=== PATIENT | female | born 1950 | race Caucasian/White ===

== ENCOUNTER 2018-12-22 19:32 | Emergency (ER) | payer OTHER ==
[~2018-12-22] VITALS: Ht 162.6 cm; Wt 74.8 kg
[2018-12-22] MEDS ORDERED: FORTAMET1000 MG (19:56)
[2018-12-22] MEDS ORDERED: PRILOSEC10 MG (19:56)
== END 2018-12-23 10:30 | disposition home or self-care (01) ==
LOC: ER 19:32
DX: E11.65 Type 2 diabetes mellitus with hyperglycemia (principal)

== ENCOUNTER 2021-04-08 12:30 | Inpatient (IN) | payer OTHER ==
[~2021-04-08] VITALS: Ht 162.6 cm; Wt 76.2 kg
[~2021-04-08 12:30] MED LIST: FORTAMET1000 MG; PRILOSEC10 MG
[2021-04-09] MEDS ORDERED: GLIMEPIRIDE4 MG (11:49)
[2021-04-09] MEDS ORDERED: COZAAR50 MG PO (11:49)
[2021-04-09] MEDS ORDERED: CRESTOR40 MG PO (11:49)
[2021-04-09] MEDS ORDERED: INVOKANA100 MG PO (11:49)
[2021-04-09] MEDS ORDERED: CYMBALTA30 MG PO (11:50)
[2021-04-09] MEDS ORDERED: D3 + K2 DOTS 11 EACH PO (11:50)
[2021-04-09] MEDS ORDERED: ADULT LOW DOSE81 M1 PO (11:50)
[2021-04-09] MEDS ORDERED: B12 ACTIVE1000 MCG PO (11:50)
[2021-04-11] MEDS ORDERED: VITAMIN B-12100 MCG (08:48)
[2021-04-11] MEDS ORDERED: VITAMIN D3250 MCG (08:48)
[2021-04-11] MEDS ORDERED: OMEPRAZOLE40 MG (08:48)
[2021-04-11] MEDS ORDERED: MELOXICAM15 MG (08:49)
[2021-04-11] MEDS ORDERED: DICLOFENAC SODI75 MG (08:49)
[2021-04-11] MEDS ORDERED: PROAIR HFA8.5 GM (08:49)
[2021-04-11] MEDS ORDERED: FLONASE16 GM (08:49)
[2021-04-11] MEDS ORDERED: CALCIUM GUMMIE1 EACH (08:50)
[2021-04-11] MEDS ORDERED: ABANEU-SL TABL1 EACH (08:50)
[2021-04-11] MEDS ORDERED: TIZANIDINE HCL4 MG (08:50)
== END 2021-04-11 11:45 | disposition home or self-care (01) | DRG 392 ==
LOC: ADM 12:30 → EDSTATUS 04-09 07:30 → ADM 04-09 09:30 → O/R 04-11 05:56 → OB/GYN 04-11 07:00 → SURH 04-11 07:30 → CIR.AMB 04-11 07:30 → EDSTATUS 04-11 07:30 → O/R 04-11 11:45
PROVIDERS: ADMIT Obstetrics & Gynecology Gynecologic Oncology; ATTEND Obstetrics & Gynecology Gynecologic Oncology
DX: R19.07 Generalized intra-abdominal and pelvic swelling, mass and lump (principal); Z53.09 Procedure and treatment not carried out because of other contraindication; E11.9 Type 2 diabetes mellitus without complications; I10 Essential (primary) hypertension

== ENCOUNTER → 2023-06-01 06:00 | Outpatient (CLI) | payer OTHER ==
[~2023-06-01] VITALS: Ht 162.6 cm; Wt 76.2 kg
[~2023-06-01 06:00] MED LIST changes: +ABANEU-SL TABL1 EACH; +ADULT LOW DOSE81 M1 PO; +B12 ACTIVE1000 MCG PO; +CALCIUM GUMMIE1 EACH; +COZAAR50 MG PO; +CRESTOR40 MG PO; +CYMBALTA30 MG PO; +D3 + K2 DOTS 11 EACH PO; +DICLOFENAC SODI75 MG; +FLONASE16 GM; +GLIMEPIRIDE4 MG; +INVOKANA100 MG PO; +MELOXICAM15 MG; +OMEPRAZOLE40 MG; +PROAIR HFA8.5 GM; +TIZANIDINE HCL4 MG; +VITAMIN B-12100 MCG; +VITAMIN D3250 MCG
== END | disposition home or self-care (01) ==
LOC: LAB 06:00 → ADM 08:15 → CIR.AMB 06-04 07:00 → EDSTATUS 06-04 08:15
PROVIDERS: ATTEND Obstetrics & Gynecology Gynecologic Oncology
DX: Z01.818 Encounter for other preprocedural examination (principal); Z01.812 Encounter for preprocedural laboratory examination; Z01.810 Encounter for preprocedural cardiovascular examination; Z20.822 Contact with and (suspected) exposure to COVID-19; D64.9 Anemia, unspecified; R79.1 Abnormal coagulation profile; R97.8 Other abnormal tumor markers; N39.0 Urinary tract infection, site not specified; N83.292 Other ovarian cyst, left side

== ENCOUNTER 2024-12-01 09:07 | Day surgery (SDC) | payer OTHER ==
[2024-11-21 10:22] VITALS: BP 122/72
[2024-11-21 10:58] LABS: COVID-19 AG NEGATIVE (NEGATIVE)
[2024-11-21 11:08] LABS: URINE APPEARANCE Clear; URINE BILIRRUBIN Negative (NEGATIVE); URINE BLOOD Negative; URINE COLOR Yellow; URINE KETONE Trace (NEGATIVE); URINE LEUKOCYTE Negative; URINE NITRATE Negative; URINE PROTEIN Negative (NEGATIVE); URINE UROBILINOGEN 0.2 E.U./dl
[2024-11-21 11:09] LABS: HEMATOCRIT 40.7 % (36.0-45.00); HEMOGLOBIN 13.7 g/dL (12.0-15.00); MEAN CELL VOLUME 84.5 fL (80.00-100.00); MEAN CORPUSCULAR HEMOGLOBIN 28.5 pg (27.00-32.0); MEAN CORPUSCULAR HGB CONC 33.7 g/dl (32.0-36.0); PLATELET COUNT 284 K/uL (150-450); RED BLOOD COUNT 4.82 M/uL (4.00-6.00); RED CELL DISTRIBUTION WIDTH 14.2 % (11.5-14.5)
[2024-11-21 11:13] LABS: URINE BACTERIA 7.3 uL (0.0-1933); URINE EPITHELIAL CELLS 3.1 uL (0.0-38.8); URINE WBC 4.7 uL (0.0-23.2)
[2024-11-21 11:22] LABS: URINE GLUCOSE >=1000 MG/DL (NEGATIVE); URINE RBC 0.4 uL (0.0-20.8)
[2024-11-21 11:27] LABS: INR 0.98; PARTIAL THROMBOPLASTIN TIME 27.3 SECONDS (22.0-34.0); PROTHROMBIN TIME 10.7 SECONDS (9.0-11.5)
[2024-11-21 11:46] LABS: ALBUMIN 4.2 gm/dL (3.4-5.0); BILIRUBIN TOTAL 1.59 mg/dL (0.3-1.2); CREATININE SERUM 0.46 mg/dL (0.55-1.02); GFR 133.53; GLOBULINA 2.6 G/DL (2.4-3.5); POTASSIUM 4.35 mEq/L (3.5-5.1); TOTAL PROTEIN 6.8 gm/dL (6.4-8.2)
[2024-11-21 12:55] LABS: RH POSITIVE
[~2024-12-01] VITALS: Ht 157.5 cm; Wt 73.9 kg
[~2024-12-01 09:07] MED LIST changes: +HORIZANT300 MG PO
[2024-12-01] MEDS ORDERED: METRONIDAZOLE/SODIUM CHLORIDE 500 MG/100 ML PIGGYBACK IV ONE (12:51)
[2024-12-01] MEDS ORDERED: CEFAZOLIN SODIUM 1,000 MG VIAL ONE (12:52)
[2024-12-01] MEDS ORDERED: POVIDONE-IODINE 118 ML BOTT TOP ONE (13:05)
[2024-12-01] MEDS ORDERED: BUPIVACAINE HCL/MPF 0.5% 30ML VIAL ONE (13:05)
[2024-12-01] MEDS ORDERED: SURGIFLO APPLICATOR 1 EACH APPL TOP ONE (14:11)
[2024-12-01] MEDS ORDERED: HEMOSTATIC MATRIX 1 KIT KIT TOP ONE (14:14)
[2024-12-01] MEDS ORDERED: MORPHINE SULFATE 2 MG/ML CARTRIDGE IV ONE ×2 (15:00→15:30)
[2024-12-01] MEDS ORDERED: ONDANSETRON HCL 2 MG/ML VIAL ONE (15:03)
[2024-12-01 20:40] VITALS: BP 158/66; O2SAT 100
== END 2024-12-01 17:30 | disposition home or self-care (01) ==
LOC: CIR.AMB 09:07
PROVIDERS: ATTEND Obstetrics & Gynecology Gynecologic Oncology
DX: D27.1 Benign neoplasm of left ovary (principal); D28.2 Benign neoplasm of uterine tubes and ligaments; I10 Essential (primary) hypertension; E78.5 Hyperlipidemia, unspecified; E11.40 Type 2 diabetes mellitus with diabetic neuropathy, unspecified

== ENCOUNTER 2025-05-22 12:35 | Emergency (ER) | payer OTHER ==
[~2025-05-22] VITALS: Ht 162.6 cm; Wt 68.0 kg
[2025-05-22] MEDS ORDERED: METFORMIN HCL1000 MG (12:49)
[2025-05-22] MEDS ORDERED: OZEMPIC0.25 MG/02 (12:49)
[2025-05-22] MEDS ORDERED: 0.9 % SODIUM CHLORIDE 1,000 ML IV ONE (17:00)
[2025-05-22] MEDS ORDERED: PANTOPRAZOLE SODIUM 40 MG/VIAL VIAL IV PUSH ONE (17:00)
[2025-05-22] MEDS ORDERED: BARIUM SULFATE 450 ML ORAL.SUSP PO ONE (17:44)
[2025-05-22 18:21] LABS: BASO % 0.3 % (0.1-1.2); EOS # 0.01 (0.04-0.54); EOS % 0.3 % (0.7-7.0); LYMPH # 0.59 (1.18-3.74); LYMPH % 15.2 % (19.3-53.1); MEAN PLATELET VOLUME 9.60 fl (9.4-12.4); MONO # 0.46 (0.24-0.82); MONO % 11.8 % (4.7-12.5); NEUT # 2.81 (1.56-6.13); NEUT % 72.1 % (34.0-71.1); RED CELL DISTRIBUTION WIDTH 13.2 % (11.6-14.4)
[2025-05-22 18:44] LABS: ALT/SGPT 39.0 U/L (12-78); AST/SGOT 24.0 U/L (15-37); BILIRUBIN TOTAL 1.36 mg/dL (0.3-1.2); BUN CREA RATIO 27.0 (7.0-25.0); CREATININE SERUM 0.52 mg/dL (0.55-1.02); GFR 115.59; GLOBULINA 3.6 G/DL (2.4-3.5); GLUCOSE FASTING 98.0 mg/dL (65-100); OSMOLALITY SERUM 274.0 MOSM/KG (275-295)
[2025-05-22 19:15] LABS: BAND MAN 3.0 %; LYMPHOCYTE MAN 12.0 %; MONOCYTE MAN 16.0 %; NEUTROPHILS MAN 66.0 %
[2025-05-22 19:39] LABS: URINE APPEARANCE Clear; URINE BILIRRUBIN Negative (NEGATIVE); URINE BLOOD Negative; URINE COLOR Yellow; URINE LEUKOCYTE Negative; URINE NITRATE Negative; URINE PROTEIN 30 (NEGATIVE); URINE UROBILINOGEN 0.2 E.U./dl
[2025-05-22 19:42] LABS: URINE BACTERIA 13.1 uL (0.0-1933); URINE EPITHELIAL CELLS 9.8 uL (0.0-38.8); URINE WBC 10.5 uL (0.0-23.2)
[2025-05-22 19:57] LABS: URINE CAST 1.02 uL (0.0-1.40); URINE GLUCOSE >=1000 MG/DL (NEGATIVE); URINE KETONE 40 (NEGATIVE); URINE RBC 0.8 uL (0.0-20.8)
[2025-05-22] MEDS ORDERED: PIPERACILLIN/TAZOBACTAM SODIUM 3.375 GM VIAL IV ONE ×2 (21:15→21:28)
== END 2025-05-23 02:19 | disposition home or self-care (01) ==
LOC: ER 12:35
PROVIDERS: General Practice
DX: K52.9 Noninfective gastroenteritis and colitis, unspecified (principal); E11.9 Type 2 diabetes mellitus without complications; I10 Essential (primary) hypertension
CPT/HCPCS: 36415; 74177; 96365; 96366; 99284; J2543; J3490; J7030; Q9965